=== PATIENT | female | born 1970 | race Caucasian/White ===

== ENCOUNTER 2020-07-24 15:49 | Inpatient (IN) | payer MEDICAID ==
[~2020-07-24] VITALS: Ht 160 cm; Wt 80.3 kg
[~2020-07-24 15:49] MED LIST: BRIM10DR2 EACHEYE; CHLO50TA MT; KETO5DRO7 EACHEYE; LINA5TAB PO; POLY30DR OP
[2020-07-24 18:07] LABS: BASOPHILS % 1.4 % (0.0-2.0); HEMATOCRIT. 32.3 % (36.0-48.0); HEMOGLOBIN. 11.1 g/dL (12.0-16.0); LYMPHOCYTES % 10.5 % (20.0-50.0); MEAN CORPUSCULAR VOLUME 81.2 fL (81.0-99.0); MEAN PLATELET VOLUME 7.9 fl (7.4-10.4); MONOCYTES % 9.1 % (2.0-8.0); PLATELET 286 x1000/uL (130-400); RED BLOOD CELL COUNT 3.98 mill/uL (4.2-5.4); RED CELL DISTRIBUTION WIDTH 17.3 % (11.6-14.6)
[2020-07-24 18:10] LABS: CHLORIDE 94 mEq/L (98-107)
[2020-07-24] MEDS ORDERED: FUROSEMIDE 40MG/4ML VIAL IVP ONE (18:45)
[2020-07-24] MEDS ORDERED: IPRATROPIUM/ALBUTEROL 0.5-3(2.5)MG/3ML NEB HHN PRN (20:00)
[2020-07-24] MEDS ORDERED: ONDANSETRON HCL 4MG/2ML INJ IV PRN (20:00)
[2020-07-24] MEDS ORDERED: DIPHENHYDRAMINE 50MG/ML VIAL IV PRN (20:00)
[2020-07-24 23:14] LABS: *AMPHETAMINES SCREEN URINE NEGATIVE (NEGATIVE); *BARBITURATES SCREEN URINE NEGATIVE (NEGATIVE); *BENZODIAZEPINES SCREEN URINE NEGATIVE (NEGATIVE); *COCAINE SCREEN URINE NEGATIVE (NEGATIVE); METHADONE URINE SCREEN NEGATIVE (NEGATIVE); OPIATES URINE SCREEN NEGATIVE (NEGATIVE)
[2020-07-24 23:15] LABS: CANNABINOID URINE SCREEN NEGATIVE (NEGATIVE); PHENCYCLIDINE URINE SCREEN NEGATIVE (NEGATIVE)
[2020-07-25 04:00] VITALS: BP 155/77
[2020-07-25 04:20] VITALS: BP 155/72
[2020-07-25] MEDS ORDERED: SPIR50TA5 MT (05:43)
[2020-07-25] MEDS ORDERED: AMLO5TAB88 PO (05:45)
[2020-07-25] MEDS ORDERED: HYDR-4134 PO (05:47)
[2020-07-25] MEDS ORDERED: LINA5TAB PO (05:51)
[2020-07-25] MEDS ORDERED: METF-414 MT (05:52)
[2020-07-25 08:00] VITALS: BP 146/69
[2020-07-25] MEDS: FUROSEMIDE 40MG/4ML VIAL IV SCH ×2 (09:29→17:32)
[2020-07-25 09:34] LABS: BASOPHILS % 1.3 % (0.0-2.0); EOSINOPHILS % 2.1 % (0.0-5.0); HEMATOCRIT. 31.3 % (36.0-48.0); HEMOGLOBIN. 10.6 g/dL (12.0-16.0); LYMPHOCYTES % 8.8 % (20.0-50.0); MEAN CORPUSCULAR HEMOGLOBIN 27.5 pg (28.0-32.0); MEAN CORPUSCULAR VOLUME 81.4 fL (81.0-99.0); MONOCYTES % 8.8 % (2.0-8.0); PLATELET 313 x1000/uL (130-400); RED BLOOD CELL COUNT 3.85 mill/uL (4.2-5.4); RED CELL DISTRIBUTION WIDTH 16.8 % (11.6-14.6)
[2020-07-25 09:41] LABS: CHLORIDE 94 mEq/L (98-107)
[2020-07-25 09:51] LABS: LDL CHOLESTEROL 144 mg/dL (5-100)
[2020-07-25 09:53] LABS: HDL CHOLESTEROL 83 mg/dL (40-59)
[2020-07-25] MEDS ORDERED: DEXTROSE 50% WATER 50ML SYRINGE IV PRN (11:45)
[2020-07-25 12:00] VITALS: BP 152/67
[2020-07-25] MEDS: BLOOD SUGAR DIAGNOSTIC STRIP TEST SCH ×3 (12:17→20:31)
[2020-07-25] MEDS: INSULIN LISPRO 100 UNITS/ML SUBCUT SCH ×3 (12:32→20:42)
[2020-07-25 12:51] LABS: PARTIAL THROMBOPLASTIN TIME 25.2 sec (23.4-31.0); PROTHROMBIN TIME 10.8 sec (9.6-11.0)
[2020-07-25] MEDS ORDERED: LIDOCAINE HCL 1% 20ML VIAL (Pyxis) INJ ONE (12:59)
[2020-07-25 13:19] LABS: HEPATITIS B SURFACE AB 3.8 mIU/mL
[2020-07-25 13:30] LABS: HEPATITIS B SURFACE ANTIGEN NEGATIVE
[2020-07-25 13:59] LABS: HEPATITIS A AB IGM NEGATIVE (NEGATIVE)
[2020-07-25 16:00] VITALS: BP 142/73
[2020-07-25] MEDS: AMLODIPINE 5MG TABLET PO SCH (17:33)
[2020-07-25 20:00] VITALS: BP 143/71
[2020-07-25] MEDS: ACETAMINOPHEN 325MG TABLET PO PRN (20:17)
[2020-07-25] MEDS: HYDRALAZINE HCL 25MG TABLET PO SCH (22:17)
[2020-07-26] VITALS (25 sets, daily range): BP systolic 109–179; BP diastolic 51–99
[2020-07-26] MEDS: ACETAMINOPHEN 325MG TABLET PO PRN (04:43)
[2020-07-26] MEDS: BLOOD SUGAR DIAGNOSTIC STRIP TEST SCH ×4 (06:16→20:52)
[2020-07-26] MEDS: INSULIN LISPRO 100 UNITS/ML SUBCUT SCH ×4 (06:16→20:55)
[2020-07-26] MEDS: HYDRALAZINE HCL 25MG TABLET PO SCH ×3 (06:39→22:06)
[2020-07-26] MEDS: FUROSEMIDE 40MG/4ML VIAL IV SCH ×2 (06:39→19:06)
[2020-07-26] MEDS: AMLODIPINE 5MG TABLET PO SCH (08:55)
[2020-07-26 11:43] LABS: BASOPHILS % 1.1 % (0.0-2.0); EOSINOPHILS % 4.3 % (0.0-5.0); HEMATOCRIT. 29.7 % (36.0-48.0); HEMOGLOBIN. 9.7 g/dL (12.0-16.0); LYMPHOCYTES % 13.1 % (20.0-50.0); MEAN CORPUSCULAR HEMOGLOBIN 27.3 pg (28.0-32.0); MEAN CORPUSCULAR VOLUME 83.1 fL (81.0-99.0); MEAN PLATELET VOLUME 8.2 fl (7.4-10.4); NEUTROPHILS % 68.5 % (40.0-76.0); PLATELET 266 x1000/uL (130-400); RED BLOOD CELL COUNT 3.57 mill/uL (4.2-5.4); RED CELL DISTRIBUTION WIDTH 17.2 % (11.6-14.6)
[2020-07-26 13:29] LABS: CLARITY URINE CLEAR (CLEAR); COLOR URINE YELLOW (YELLOW); KETONES URINE NEGATIVE (NEGATIVE); LEUKOCYTE ESTERASE URINE NEGATIVE (NEGATIVE); NITRITE URINE NEGATIVE (NEGATIVE); OCCULT BLOOD URINE NEGATIVE (NEGATIVE); PROTEIN URINE 3+ (NEGATIVE); SPECIFIC GRAVITY URINE 1.013 (1.005-1.030); UROBILINOGEN URINE 0.2 E.U./dL (0.2-1.0)
[2020-07-26] MEDS ORDERED: NOREPINEPHRINE 8 MG in DEXTROSE 5% WATER 250 ML IV NR (15:00)
[2020-07-26] MEDS ORDERED: EPINEPHRINE 10 MG in SODIUM CHLORIDE 0.9% 250 ML IV NR (15:00)
[2020-07-26] MEDS ORDERED: GENTAMICIN SULF 40MG/ML 2ML VIAL ONE (15:52)
[2020-07-26] MEDS ORDERED: SKIN ADHESIVE 0.7 GM EA TOP ONE (15:52)
[2020-07-26] MEDS ORDERED: BUPIVACAINE HCL/PF 0.25% (2.5MG/ML) 10ML ONE (15:52)
[2020-07-26] MEDS ORDERED: BUPIVACAINE HCL/PF 0.5% (5MG/ML) 10ML ONE (15:53)
[2020-07-26] MEDS ORDERED: VANCOMYCIN 1 G PREMIX 200 ML IV SCH (16:15)
[2020-07-26] MEDS ORDERED: VANCOMYCIN HCL 1 GM/VIAL ONE (16:19)
[2020-07-26] MEDS ORDERED: ACETAMINOPHEN 500MG TABLET ONE (16:25)
[2020-07-26 16:32] LABS: BG BASE EXCESS 1.9 mmol/L (-2.0-2.0); BG CARBOXYHEMOGLOBIN 0.3 % (0.5-1.5); BG DEOXYHEMOGLOBIN 7.6 % (0.0-5.0); BG FRACTION INSPIRED OXYGEN 21; BG HCO3 ACT 26.1 mmol/L (22.0-26.0); BG OXYGEN SATURATION 92.4 % (92.0-98.5); BG OXYHEMOGLOBIN 92.1 % (94.0-97.0); BG PCO2 39.2 mmHg (35.0-45.0); BG PH 7.441 (7.350-7.450); BG PO2 60.3 mmHg (75.0-100.0); BG SAMPLE SITE LEFT RADIAL; BG TOTAL HEMOGLOBIN 12.1 g/dL (12.0-18.0); BG VENT MODE ROOM AIR
[2020-07-26] MEDS ORDERED: METOCLOPRAMIDE HCL 10MG/2ML VIAL ONE (17:06)
[2020-07-26] MEDS ORDERED: MIDAZOLAM HCL 2 MG/2 ML VIAL ONE (17:06)
[2020-07-26] MEDS ORDERED: ONDANSETRON HCL 4MG/2ML INJ ONE (17:06)
[2020-07-26] MEDS ORDERED: ETOMIDATE 2MG/ML 10ML VIAL IV ONE (17:08)
[2020-07-26] MEDS ORDERED: ROCURONIUM BROMIDE 10MG/ML VIAL 5ML IV ONE (17:08)
[2020-07-26] MEDS ORDERED: SUCCINYLCHOLINE CHLORIDE 200MG/10ML IV ONE (17:08)
[2020-07-26] MEDS ORDERED: FENTANYL CITRATE/PF 50MCG/ML 2ML VIAL ONE (17:11)
[2020-07-26] MEDS ORDERED: CEFAZOLIN SODIUM 1000MG/VIAL ONE (17:11)
[2020-07-26] MEDS ORDERED: SODIUM CHLORIDE 0.9% 10ML VIAL ONE (17:12)
[2020-07-26] MEDS ORDERED: ALBUMIN HUMAN 25GM/100ML (25%) IV ONE (17:17)
[2020-07-26] MEDS ORDERED: LIDOCAINE HCL 2% 5ML SYRINGE IV ONE (17:24)
[2020-07-26] MEDS ORDERED: ALBUMIN HUMAN 25GM/100ML (25%) IV PRN (18:15)
[2020-07-26] MEDS ORDERED: OXYCODONE HCL/ACETAMINOPHEN 5/325MG TABLET PO PRN (18:15)
[2020-07-26] MEDS ORDERED: ACETAMINOPHEN 325MG TABLET PO PRN (18:15)
[2020-07-26] MEDS: OXYCODONE HCL/ACETAMINOPHEN 5/325MG TABLET PO PRN (20:30)
[2020-07-26] MEDS: ATORVASTATIN CALCIUM 40MG TABLET PO SCH ×2 (20:52→22:06)
[2020-07-26 21:38] LABS: EOSINOPHILS % 1.5 % (0.0-5.0); HEMATOCRIT. 26.8 % (36.0-48.0); HEMOGLOBIN. 9.2 g/dL (12.0-16.0); LYMPHOCYTES % 8.7 % (20.0-50.0); MEAN CORPUSCULAR HEMOGLOBIN 27.9 pg (28.0-32.0); MEAN CORPUSCULAR VOLUME 81.6 fL (81.0-99.0); MEAN PLATELET VOLUME 7.7 fl (7.4-10.4); MONOCYTES % 9.2 % (2.0-8.0); NEUTROPHILS % 79.6 % (40.0-76.0); PLATELET 250 x1000/uL (130-400); RED BLOOD CELL COUNT 3.28 mill/uL (4.2-5.4); RED CELL DISTRIBUTION WIDTH 16.9 % (11.6-14.6)
[2020-07-27] VITALS (73 sets, daily range): BP systolic 120–189; BP diastolic 51–93
[2020-07-27] MEDS: CLONIDINE 0.1MG TABLET PO PRN ×2 (00:35→10:23)
[2020-07-27] MEDS: OXYCODONE HCL/ACETAMINOPHEN 5/325MG TABLET PO PRN ×3 (00:42→07:24)
[2020-07-27] MEDS ORDERED: HYDRALAZINE 20MG/ML VIAL IV NR (02:30)
[2020-07-27 05:39] LABS: HEMATOCRIT. 32.1 % (36.0-48.0); HEMOGLOBIN. 10.5 g/dL (12.0-16.0); MEAN CORPUSCULAR VOLUME 82.6 fL (81.0-99.0); MEAN PLATELET VOLUME 7.9 fl (7.4-10.4); PLATELET 358 x1000/uL (130-400); RED BLOOD CELL COUNT 3.88 mill/uL (4.2-5.4); RED CELL DISTRIBUTION WIDTH 17.3 % (11.6-14.6)
[2020-07-27 05:47] LABS: PHOSPHORUS 6.4 mg/dL (2.5-4.9)
[2020-07-27] MEDS: FUROSEMIDE 40MG/4ML VIAL IV SCH ×2 (06:50→18:00)
[2020-07-27] MEDS: HYDRALAZINE HCL 25MG TABLET PO SCH ×3 (06:50→22:37)
[2020-07-27 07:05] LABS: PLATELET ESTIMATE NORMAL
[2020-07-27] MEDS: INSULIN LISPRO 100 UNITS/ML SUBCUT SCH ×4 (07:22→21:00)
[2020-07-27] MEDS: BLOOD SUGAR DIAGNOSTIC STRIP TEST SCH ×4 (07:22→21:37)
[2020-07-27] MEDS: FAMOTIDINE 20MG/2ML VIAL IV SCH (08:24)
[2020-07-27] MEDS: DOCUSATE SODIUM 100MG CAPSULE PO SCH ×2 (08:24→17:59)
[2020-07-27] MEDS: AMLODIPINE 5MG TABLET PO SCH ×2 (08:24→21:00)
[2020-07-27] MEDS: BACITRACIN 15GM TUBE TOP SCH ×2 (09:00→17:00)
[2020-07-27] MEDS: CALCIUM ACETATE 667MG CAPSULE PO SCH ×2 (14:09→17:59)
[2020-07-27] MEDS: ONDANSETRON HCL 4MG/2ML INJ IV PRN (14:19)
[2020-07-28] VITALS (49 sets, daily range): BP systolic 122–163; BP diastolic 56–109
[2020-07-28] MEDS: HYDRALAZINE HCL 25MG TABLET PO SCH ×3 (06:11→22:22)
[2020-07-28] MEDS: BLOOD SUGAR DIAGNOSTIC STRIP TEST SCH ×4 (07:36→21:00)
[2020-07-28] MEDS: INSULIN LISPRO 100 UNITS/ML SUBCUT SCH ×4 (07:37→21:00)
[2020-07-28] MEDS: FUROSEMIDE 40MG/4ML VIAL IV SCH ×2 (07:41→15:54)
[2020-07-28] MEDS: BACITRACIN 15GM TUBE TOP SCH ×2 (09:00→15:48)
[2020-07-28] MEDS: DOCUSATE SODIUM 100MG CAPSULE PO SCH ×2 (09:02→15:54)
[2020-07-28] MEDS: CALCIUM ACETATE 667MG CAPSULE PO SCH ×3 (09:03→18:22)
[2020-07-28] MEDS: FAMOTIDINE 20MG/2ML VIAL IV SCH (09:03)
[2020-07-28] MEDS: AMLODIPINE 5MG TABLET PO SCH ×2 (09:04→22:23)
[2020-07-28 09:48] LABS: HEMATOCRIT. 29.6 % (36.0-48.0); HEMOGLOBIN. 9.9 g/dL (12.0-16.0); MEAN CORPUSCULAR VOLUME 83.4 fL (81.0-99.0); MEAN PLATELET VOLUME 7.7 fl (7.4-10.4); PLATELET 244 x1000/uL (130-400); RED BLOOD CELL COUNT 3.55 mill/uL (4.2-5.4); RED CELL DISTRIBUTION WIDTH 17.5 % (11.6-14.6)
[2020-07-28] MEDS: ONDANSETRON HCL 4MG/2ML INJ IV PRN (14:23)
[2020-07-28] MEDS: PREDNISONE 20MG TABLET PO SCH (15:53)
[2020-07-28] MEDS: PANTOPRAZOLE 40MG DR TABLET PO SCH (15:53)
[2020-07-28 19:39] LABS: PLATELET ESTIMATE NORMAL
[2020-07-28] MEDS: ATORVASTATIN CALCIUM 40MG TABLET PO SCH (22:22)
[2020-07-29] VITALS (7 sets, daily range): BP systolic 131–161; BP diastolic 44–71
[2020-07-29] MEDS: BLOOD SUGAR DIAGNOSTIC STRIP TEST SCH ×4 (06:17→21:16)
[2020-07-29] MEDS: HYDRALAZINE HCL 25MG TABLET PO SCH ×3 (06:17→21:15)
[2020-07-29] MEDS: FUROSEMIDE 40MG/4ML VIAL IV SCH ×2 (06:17→18:17)
[2020-07-29] MEDS: PANTOPRAZOLE 40MG DR TABLET PO SCH (06:20)
[2020-07-29 06:33] LABS: HEMATOCRIT. 29.8 % (36.0-48.0); HEMOGLOBIN. 9.8 g/dL (12.0-16.0); MEAN CORPUSCULAR HEMOGLOBIN 27.3 pg (28.0-32.0); MEAN CORPUSCULAR VOLUME 83.1 fL (81.0-99.0); MEAN PLATELET VOLUME 7.4 fl (7.4-10.4); PLATELET 254 x1000/uL (130-400); RED BLOOD CELL COUNT 3.58 mill/uL (4.2-5.4); RED CELL DISTRIBUTION WIDTH 17.5 % (11.6-14.6)
[2020-07-29 06:44] LABS: PHOSPHORUS 5.1 mg/dL (2.5-4.9)
[2020-07-29] MEDS: INSULIN LISPRO 100 UNITS/ML SUBCUT SCH ×4 (07:50→21:24)
[2020-07-29] MEDS: BACITRACIN 15GM TUBE TOP SCH ×2 (09:00→17:00)
[2020-07-29] MEDS: CALCIUM ACETATE 667MG CAPSULE PO SCH ×3 (10:05→18:17)
[2020-07-29] MEDS: ONDANSETRON HCL 4MG/2ML INJ IV PRN (10:05)
[2020-07-29] MEDS: DOCUSATE SODIUM 100MG CAPSULE PO SCH ×2 (10:05→18:17)
[2020-07-29] MEDS: PREDNISONE 20MG TABLET PO SCH (10:05)
[2020-07-29 13:03] LABS: PLATELET ESTIMATE NORMAL
[2020-07-29] MEDS: AMLODIPINE 5MG TABLET PO SCH ×2 (15:50→21:15)
[2020-07-29] MEDS: ACETAMINOPHEN 325MG TABLET PO PRN (21:15)
[2020-07-29] MEDS: ATORVASTATIN CALCIUM 40MG TABLET PO SCH (21:15)
[2020-07-30] VITALS: BP 147/62
[2020-07-30 04:00] VITALS: BP 156/74
[2020-07-30] MEDS: FUROSEMIDE 40MG/4ML VIAL IV SCH ×2 (06:20→17:16)
[2020-07-30] MEDS: HYDRALAZINE HCL 25MG TABLET PO SCH ×3 (06:20→21:18)
[2020-07-30] MEDS: PANTOPRAZOLE 40MG DR TABLET PO SCH (06:20)
[2020-07-30] MEDS: BLOOD SUGAR DIAGNOSTIC STRIP TEST SCH ×4 (06:20→21:18)
[2020-07-30 06:21] LABS: HEMATOCRIT. 29.7 % (36.0-48.0); HEMOGLOBIN. 9.9 g/dL (12.0-16.0); MEAN CORPUSCULAR HEMOGLOBIN 27.6 pg (28.0-32.0); MEAN PLATELET VOLUME 7.7 fl (7.4-10.4); PLATELET 272 x1000/uL (130-400); RED BLOOD CELL COUNT 3.57 mill/uL (4.2-5.4); RED CELL DISTRIBUTION WIDTH 17.5 % (11.6-14.6)
[2020-07-30 08:00] VITALS: BP 136/59
[2020-07-30] MEDS: DOCUSATE SODIUM 100MG CAPSULE PO SCH ×2 (08:22→17:16)
[2020-07-30] MEDS: CALCIUM ACETATE 667MG CAPSULE PO SCH ×3 (08:22→17:16)
[2020-07-30] MEDS: AMLODIPINE 5MG TABLET PO SCH ×2 (08:23→21:18)
[2020-07-30] MEDS: PREDNISONE 20MG TABLET PO SCH (08:23)
[2020-07-30] MEDS: INSULIN LISPRO 100 UNITS/ML SUBCUT SCH ×5 (08:25→21:19)
[2020-07-30] MEDS: BACITRACIN 15GM TUBE TOP SCH ×2 (08:31→17:00)
[2020-07-30 12:00] VITALS: BP 137/67
[2020-07-30 13:05] LABS: PLATELET ESTIMATE NORMAL
[2020-07-30 16:00] VITALS: BP 144/68
[2020-07-30] MEDS ORDERED: DEXTROSE 50% WATER 50ML SYRINGE IV PRN (18:45)
[2020-07-30 20:00] VITALS: BP 155/72
[2020-07-30] MEDS: ATORVASTATIN CALCIUM 40MG TABLET PO SCH (21:18)
[2020-07-31] VITALS: BP 149/75
[2020-07-31 04:00] VITALS: BP 146/67
[2020-07-31 06:25] LABS: HEMATOCRIT. 29.2 % (36.0-48.0); HEMOGLOBIN. 9.7 g/dL (12.0-16.0); MEAN CORPUSCULAR HEMOGLOBIN 27.2 pg (28.0-32.0); MEAN CORPUSCULAR VOLUME 81.9 fL (81.0-99.0); MEAN PLATELET VOLUME 7.6 fl (7.4-10.4); PLATELET 280 x1000/uL (130-400); RED BLOOD CELL COUNT 3.57 mill/uL (4.2-5.4); RED CELL DISTRIBUTION WIDTH 16.9 % (11.6-14.6)
[2020-07-31] MEDS: HYDRALAZINE HCL 25MG TABLET PO SCH ×2 (06:35→12:58)
[2020-07-31] MEDS: PANTOPRAZOLE 40MG DR TABLET PO SCH (06:35)
[2020-07-31] MEDS: FUROSEMIDE 40MG/4ML VIAL IV SCH (06:35)
[2020-07-31] MEDS: BLOOD SUGAR DIAGNOSTIC STRIP TEST SCH ×4 (06:35→21:51)
[2020-07-31] MEDS: CALCIUM ACETATE 667MG CAPSULE PO SCH ×3 (07:50→18:36)
[2020-07-31 08:00] VITALS: BP 159/70
[2020-07-31] MEDS: PREDNISONE 20MG TABLET PO SCH (09:00)
[2020-07-31] MEDS: AMLODIPINE 5MG TABLET PO SCH ×2 (09:00→21:50)
[2020-07-31] MEDS: BACITRACIN 15GM TUBE TOP SCH (09:00)
[2020-07-31] MEDS: INSULIN LISPRO 100 UNITS/ML SUBCUT SCH ×4 (09:00→21:57)
[2020-07-31] MEDS: DOCUSATE SODIUM 100MG CAPSULE PO SCH ×2 (09:00→18:36)
[2020-07-31 12:00] VITALS: BP 152/66
[2020-07-31 14:48] LABS: PLATELET ESTIMATE NORMAL
[2020-07-31 16:00] VITALS: BP 146/69
[2020-07-31] MEDS: HYDRALAZINE HCL 50MG TABLET PO SCH (21:50)
[2020-07-31] MEDS: ATORVASTATIN CALCIUM 40MG TABLET PO SCH (21:51)
[2020-08-01] VITALS: BP 151/67
[2020-08-01 04:00] VITALS: BP 157/72
[2020-08-01 06:26] LABS: HEMATOCRIT. 30.5 % (36.0-48.0); HEMOGLOBIN. 10.3 g/dL (12.0-16.0); MEAN CORPUSCULAR HEMOGLOBIN 27.7 pg (28.0-32.0); MEAN CORPUSCULAR VOLUME 82.2 fL (81.0-99.0); MEAN PLATELET VOLUME 7.6 fl (7.4-10.4); PLATELET 273 x1000/uL (130-400); RED BLOOD CELL COUNT 3.71 mill/uL (4.2-5.4)
[2020-08-01] MEDS: PANTOPRAZOLE 40MG DR TABLET PO SCH (06:43)
[2020-08-01] MEDS: HYDRALAZINE HCL 50MG TABLET PO SCH ×3 (06:43→21:24)
[2020-08-01] MEDS: BLOOD SUGAR DIAGNOSTIC STRIP TEST SCH ×4 (06:43→21:24)
[2020-08-01 07:56] VITALS: BP 155/79
[2020-08-01] MEDS: DOCUSATE SODIUM 100MG CAPSULE PO SCH ×2 (09:13→16:53)
[2020-08-01] MEDS: ACETAMINOPHEN 325MG TABLET PO PRN ×2 (09:13→16:53)
[2020-08-01] MEDS: CALCIUM ACETATE 667MG CAPSULE PO SCH ×3 (09:13→16:53)
[2020-08-01] MEDS: FUROSEMIDE 40MG/4ML VIAL IV SCH (09:14)
[2020-08-01] MEDS: AMLODIPINE 5MG TABLET PO SCH ×2 (09:14→21:24)
[2020-08-01] MEDS: INSULIN LISPRO 100 UNITS/ML SUBCUT SCH ×4 (09:25→22:04)
[2020-08-01] MEDS: PREDNISONE 20MG TABLET PO SCH (09:26)
[2020-08-01] MEDS: BACITRACIN 15GM TUBE TOP SCH ×3 (10:42→16:59)
[2020-08-01 12:00] VITALS: BP 160/71
[2020-08-01] MEDS ORDERED: PANT40TA51 PO (14:43)
[2020-08-01] MEDS ORDERED: LIP40 PO (14:43)
[2020-08-01] MEDS ORDERED: P20 PO (14:43)
[2020-08-01] MEDS ORDERED: CALC667C PO (14:43)
[2020-08-01] MEDS ORDERED: HYDR-4135 PO (14:43)
[2020-08-01 16:00] VITALS: BP 159/73
[2020-08-01 19:09] LABS: PLATELET ESTIMATE NORMAL
[2020-08-01 20:00] VITALS: BP 164/72
[2020-08-01] MEDS: ATORVASTATIN CALCIUM 40MG TABLET PO SCH (21:24)
[2020-08-02] VITALS: BP 155/70
[2020-08-02 04:00] VITALS: BP 160/83
[2020-08-02] MEDS: PANTOPRAZOLE 40MG DR TABLET PO SCH (06:31)
[2020-08-02] MEDS: BLOOD SUGAR DIAGNOSTIC STRIP TEST SCH ×4 (06:31→21:41)
[2020-08-02] MEDS: HYDRALAZINE HCL 50MG TABLET PO SCH ×3 (06:31→21:40)
[2020-08-02] MEDS: ACETAMINOPHEN 325MG TABLET PO PRN (06:35)
[2020-08-02 08:01] VITALS: BP 141/63
[2020-08-02] MEDS: DOCUSATE SODIUM 100MG CAPSULE PO SCH ×2 (09:15→18:13)
[2020-08-02] MEDS: CALCIUM ACETATE 667MG CAPSULE PO SCH ×3 (09:15→18:13)
[2020-08-02] MEDS: PREDNISONE 20MG TABLET PO SCH (09:15)
[2020-08-02] MEDS: FUROSEMIDE 40MG/4ML VIAL IV SCH (09:15)
[2020-08-02] MEDS: AMLODIPINE 5MG TABLET PO SCH ×2 (09:16→21:41)
[2020-08-02] MEDS: INSULIN LISPRO 100 UNITS/ML SUBCUT SCH ×4 (09:17→21:45)
[2020-08-02] MEDS: BACITRACIN 15GM TUBE TOP SCH ×2 (09:21→18:13)
[2020-08-02 11:19] VITALS: BP 145/62
[2020-08-02 15:51] VITALS: BP 150/69
[2020-08-02] MEDS ORDERED: CEFTRIAXONE 1 G PREMIX 50 ML IV SCH (17:00)
[2020-08-02] MEDS ORDERED: LORAZEPAM 0.5MG TABLET PO PRN (17:30)
[2020-08-02] MEDS: CEFTRIAXONE 1,000 MG in DEXTROSE 5% WATER 50 ML IV SCH (18:30)
[2020-08-02 20:00] VITALS: BP 162/72
[2020-08-02] MEDS: ATORVASTATIN CALCIUM 40MG TABLET PO SCH (21:37)
[2020-08-03] VITALS: BP 153/69
[2020-08-03 04:00] VITALS: BP 145/58
[2020-08-03] MEDS: HYDRALAZINE HCL 50MG TABLET PO SCH ×3 (06:07→20:58)
[2020-08-03] MEDS: FAMOTIDINE 20MG TABLET PO SCH (06:07)
[2020-08-03] MEDS: BLOOD SUGAR DIAGNOSTIC STRIP TEST SCH ×4 (07:26→20:18)
[2020-08-03] MEDS: INSULIN LISPRO 100 UNITS/ML SUBCUT SCH ×4 (07:50→21:02)
[2020-08-03 08:55] VITALS: BP 142/64
[2020-08-03] MEDS: PREDNISONE 20MG TABLET PO SCH (09:35)
[2020-08-03] MEDS: AMLODIPINE 5MG TABLET PO SCH ×2 (09:35→20:57)
[2020-08-03] MEDS: CALCIUM ACETATE 667MG CAPSULE PO SCH ×3 (09:35→17:25)
[2020-08-03] MEDS: FUROSEMIDE 40MG/4ML VIAL IV SCH (09:35)
[2020-08-03] MEDS: DOCUSATE SODIUM 100MG CAPSULE PO SCH ×2 (09:35→17:25)
[2020-08-03] MEDS: BACITRACIN 15GM TUBE TOP SCH ×2 (09:36→17:25)
[2020-08-03 12:08] VITALS: BP 150/72
[2020-08-03 12:50] LABS: HEMATOCRIT. 27.8 % (36.0-48.0); HEMOGLOBIN. 9.5 g/dL (12.0-16.0); MEAN CORPUSCULAR HEMOGLOBIN 27.9 pg (28.0-32.0); MEAN CORPUSCULAR VOLUME 81.9 fL (81.0-99.0); MEAN PLATELET VOLUME 7.3 fl (7.4-10.4); PLATELET 283 x1000/uL (130-400); RED BLOOD CELL COUNT 3.39 mill/uL (4.2-5.4)
[2020-08-03] MEDS: ACETAMINOPHEN 325MG TABLET PO PRN (14:16)
[2020-08-03 16:27] VITALS: BP 144/70
[2020-08-03] MEDS: CEFTRIAXONE 1,000 MG in DEXTROSE 5% WATER 50 ML IV SCH (17:24)
[2020-08-03 18:23] LABS: PLATELET ESTIMATE NORMAL
[2020-08-03 20:00] VITALS: BP 156/69
[2020-08-03] MEDS: ATORVASTATIN CALCIUM 40MG TABLET PO SCH (20:57)
[2020-08-04] VITALS: BP 160/88
[2020-08-04] MEDS: CLONIDINE 0.1MG TABLET PO PRN (03:06)
[2020-08-04 04:00] VITALS: BP 149/76
[2020-08-04] MEDS: BLOOD SUGAR DIAGNOSTIC STRIP TEST SCH ×4 (06:11→20:18)
[2020-08-04] MEDS: FAMOTIDINE 20MG TABLET PO SCH (06:29)
[2020-08-04] MEDS: HYDRALAZINE HCL 50MG TABLET PO SCH ×3 (06:29→21:11)
[2020-08-04 08:00] VITALS: BP 142/80
[2020-08-04] MEDS: PREDNISONE 20MG TABLET PO SCH (09:22)
[2020-08-04] MEDS: CALCIUM ACETATE 667MG CAPSULE PO SCH ×3 (09:22→17:16)
[2020-08-04] MEDS: DOCUSATE SODIUM 100MG CAPSULE PO SCH ×2 (09:22→17:17)
[2020-08-04] MEDS: FUROSEMIDE 40MG/4ML VIAL IV SCH (09:22)
[2020-08-04] MEDS: AMLODIPINE 5MG TABLET PO SCH ×2 (09:22→21:11)
[2020-08-04] MEDS: INSULIN LISPRO 100 UNITS/ML SUBCUT SCH ×4 (09:24→21:14)
[2020-08-04 12:00] VITALS: BP 146/84
[2020-08-04] MEDS: BACITRACIN 15GM TUBE TOP SCH ×2 (13:10→17:17)
[2020-08-04] MEDS: ACETAMINOPHEN 325MG TABLET PO PRN ×3 (15:36→21:12)
[2020-08-04 16:00] VITALS: BP 140/82
[2020-08-04 16:25] LABS: CLARITY URINE CLEAR (CLEAR); COLOR URINE YELLOW (YELLOW); KETONES URINE NEGATIVE (NEGATIVE); LEUKOCYTE ESTERASE URINE NEGATIVE (NEGATIVE); NITRITE URINE NEGATIVE (NEGATIVE); OCCULT BLOOD URINE NEGATIVE (NEGATIVE); PROTEIN URINE 2+ (NEGATIVE); SPECIFIC GRAVITY URINE 1.013 (1.005-1.030); UROBILINOGEN URINE 0.2 E.U./dL (0.2-1.0)
[2020-08-04] MEDS: CEFTRIAXONE 1,000 MG in DEXTROSE 5% WATER 50 ML IV SCH (17:16)
[2020-08-04 20:00] VITALS: BP 161/87
[2020-08-04] MEDS: ATORVASTATIN CALCIUM 40MG TABLET PO SCH (21:11)
[2020-08-05] VITALS: BP 140/73
[2020-08-05 04:00] VITALS: BP 148/65
[2020-08-05] MEDS: BLOOD SUGAR DIAGNOSTIC STRIP TEST SCH ×2 (06:39→11:55)
[2020-08-05] MEDS: INSULIN LISPRO 100 UNITS/ML SUBCUT SCH ×2 (07:50→12:03)
[2020-08-05 08:00] VITALS: BP 169/74
[2020-08-05] MEDS: BACITRACIN 15GM TUBE TOP SCH (09:00)
[2020-08-05] MEDS: FUROSEMIDE 40MG/4ML VIAL IV SCH (09:01)
[2020-08-05] MEDS: HYDRALAZINE HCL 50MG TABLET PO SCH ×2 (09:02→13:57)
[2020-08-05] MEDS: PREDNISONE 20MG TABLET PO SCH (09:02)
[2020-08-05] MEDS: CALCIUM ACETATE 667MG CAPSULE PO SCH ×2 (09:02→12:07)
[2020-08-05] MEDS: DOCUSATE SODIUM 100MG CAPSULE PO SCH (09:02)
[2020-08-05] MEDS: AMLODIPINE 5MG TABLET PO SCH (09:02)
[2020-08-05] MEDS: FAMOTIDINE 20MG TABLET PO SCH (09:02)
[2020-08-05 12:00] VITALS: BP 160/70
[2020-08-05 14:06] VITALS: BP 152/72
[2020-08-08] VITALS: BP 124/73
[2020-08-08 04:00] VITALS: BP 134/55
== END 2020-08-05 14:50 | disposition home or self-care (01) | DRG 207 ==
LOC: ER 16:33 → MICUSO 22:28 → 5WST 07-25 02:10 → CVICU 07-26 18:15 → 6WST 07-29 01:15 → UNDODISIN 08-04 17:45
PROVIDERS: ADMIT Internal Medicine; ATTEND Internal Medicine
PROC: 0JH63XZ Insertion of Tunneled Vascular Access Device into Chest Subcutaneous Tissue and Fascia, Percutaneous Approach (ICD-10-PCS; principal; 2020-07-25)
PROC: B5181ZA Fluoroscopy of Superior Vena Cava using Low Osmolar Contrast, Guidance (ICD-10-PCS; 2020-07-25)
PROC: B548ZZA Ultrasonography of Superior Vena Cava, Guidance (ICD-10-PCS; 2020-07-25)
PROC: 02HV33Z Insertion of Infusion Device into Superior Vena Cava, Percutaneous Approach (ICD-10-PCS; 2020-07-25)
PROC: 5A1D70Z Performance of Urinary Filtration, Intermittent, Less than 6 Hours Per Day (ICD-10-PCS; 2020-07-25)
PROC: 0W9D3ZZ Drainage of Pericardial Cavity, Percutaneous Approach (ICD-10-PCS; 2020-07-26)
PROC: 5A1D70Z Performance of Urinary Filtration, Intermittent, Less than 6 Hours Per Day (ICD-10-PCS; 2020-07-27)
PROC: 5A1D70Z Performance of Urinary Filtration, Intermittent, Less than 6 Hours Per Day (ICD-10-PCS; 2020-07-29)
DX: I31.3 Pericardial effusion (noninflammatory) (principal); J96.00 Acute respiratory failure, unspecified whether with hypoxia or hypercapnia; N17.0 Acute kidney failure with tubular necrosis; I13.2 Hypertensive heart and chronic kidney disease with heart failure and with stage 5 chronic kidney disease, or end stage renal disease; J91.8 Pleural effusion in other conditions classified elsewhere; I27.20 Pulmonary hypertension, unspecified; E83.39 Other disorders of phosphorus metabolism; N18.6 End stage renal disease; E11.22 Type 2 diabetes mellitus with diabetic chronic kidney disease; E83.41 Hypermagnesemia; E87.1 Hypo-osmolality and hyponatremia; E78.5 Hyperlipidemia, unspecified; K86.9 Disease of pancreas, unspecified; D64.9 Anemia, unspecified; E87.6 Hypokalemia; Z20.822 Contact with and (suspected) exposure to COVID-19; F17.210 Nicotine dependence, cigarettes, uncomplicated; R97.1 Elevated cancer antigen 125 [CA 125]; Z80.9 Family history of malignant neoplasm, unspecified; Z99.2 Dependence on renal dialysis; R60.1 Generalized edema; R50.9 Fever, unspecified
CPT/HCPCS: 36415; 36556; 36600; 71045; 74181; 76937; 77001; 80048; 80053; 80061; 80305; 81003; 82375; 82378; 82533; 82575; 82805; 82962; 83036; 83735; 83880; 83930; 83935; 84100; 84145; 84443; 84484; 85025; 86301; 86304; 86705; 86706; 86709; 86803; 86850; 86900; 86920; 87075; 87116; 87340; 87426; 88108; 88305; 88312; 93005; 93306; 93970; 97162; 97166; 99285; C1752; C1887; J0330; J0360; J0690; J0696; J1200; J1580; J1642; J1815; J1940; J2250; J2405; J2765; J3010; J3370; J3490; J7040; J7050; J7060; J7512; P9047; U0003; A4315

== ENCOUNTER 2020-08-11 16:32 | Inpatient (IN) | payer MEDICAID ==
[~2020-08-11] VITALS: Ht 152.4 cm; Wt 66.7 kg
[~2020-08-11 16:32] MED LIST changes: +AMLO5TAB88 PO; +CALC667C PO; +HYDR-4135 PO; +LIP40 PO; +METF-414 MT; +P20 PO; +PANT40TA51 PO
[2020-08-11] MEDS ORDERED: MORPHINE SULFATE 4 MG/ML CPJ (NOT FOR IM USE) IV ONE (17:15)
[2020-08-11 17:22] LABS: CHLORIDE 97 mEq/L (98-107)
[2020-08-11 17:26] LABS: PROTHROMBIN TIME 11.2 sec (9.6-11.0)
[2020-08-11 17:30] LABS: HEMATOCRIT. 29.1 % (36.0-48.0); HEMOGLOBIN. 9.7 g/dL (12.0-16.0); MEAN CORPUSCULAR HEMOGLOBIN 27.3 pg (28.0-32.0); MEAN CORPUSCULAR VOLUME 82.2 fL (81.0-99.0); MEAN PLATELET VOLUME 8.2 fl (7.4-10.4); PLATELET 307 x1000/uL (130-400); RED BLOOD CELL COUNT 3.54 mill/uL (4.2-5.4); RED CELL DISTRIBUTION WIDTH 17.7 % (11.6-14.6)
[2020-08-11 18:56] LABS: PLATELET ESTIMATE NORMAL
[2020-08-11 22:30] VITALS: BP 143/70
[2020-08-11] MEDS ORDERED: DEXTROSE 50% WATER 50ML SYRINGE IV PRN (23:00)
[2020-08-12] VITALS: BP 132/56
[2020-08-12 04:00] VITALS: BP 131/55
[2020-08-12] MEDS: FUROSEMIDE 40MG/4ML VIAL IVP SCH ×2 (06:20→16:50)
[2020-08-12] MEDS: PANTOPRAZOLE 40MG DR TABLET PO SCH (06:21)
[2020-08-12] MEDS: BLOOD SUGAR DIAGNOSTIC STRIP TEST SCH ×4 (06:21→20:56)
[2020-08-12] MEDS: HYDRALAZINE HCL 50MG TABLET PO SCH ×3 (06:21→21:41)
[2020-08-12 06:59] LABS: BASOPHILS % 1.7 % (0.0-2.0); EOSINOPHILS % 2.6 % (0.0-5.0); HEMATOCRIT. 28.4 % (36.0-48.0); HEMOGLOBIN. 9.5 g/dL (12.0-16.0); LYMPHOCYTES % 9.7 % (20.0-50.0); MEAN CORPUSCULAR HEMOGLOBIN 27.9 pg (28.0-32.0); MEAN CORPUSCULAR VOLUME 83.5 fL (81.0-99.0); MEAN PLATELET VOLUME 8.2 fl (7.4-10.4); MONOCYTES % 8.9 % (2.0-8.0); NEUTROPHILS % 77.1 % (40.0-76.0); PLATELET 274 x1000/uL (130-400); RED CELL DISTRIBUTION WIDTH 17.8 % (11.6-14.6)
[2020-08-12 08:00] VITALS: BP 138/64
[2020-08-12] MEDS: AMLODIPINE 10MG TABLET PO SCH (08:56)
[2020-08-12] MEDS: CALCIUM ACETATE 667MG CAPSULE PO SCH ×3 (08:56→16:50)
[2020-08-12] MEDS: TIMOLOL MALEATE 0.5% OPHTH DROPS 5ML EACHEYE SCH ×2 (08:57→21:12)
[2020-08-12] MEDS: BRIMONIDINE 0.2% OPHTH DROPS 5ML EACHEYE SCH ×2 (08:57→21:12)
[2020-08-12] MEDS ORDERED: MEDICATION NOT ON FORMULARY EA (Ketotifen Fumarate 1 DROP) EACHEYE SCH (09:00)
[2020-08-12] MEDS ORDERED: MEDICATION NOT ON FORMULARY EA (Brimonidine Tartrate/Timolol (Combigan Eye Drops) 1 DROP EACHEYE SCH (09:00)
[2020-08-12] MEDS: INSULIN LISPRO 100 UNITS/ML SUBCUT SCH ×4 (09:39→21:14)
[2020-08-12] MEDS ORDERED: LIDOCAINE HCL 1% 20ML VIAL (Pyxis) INJ ONE (11:09)
[2020-08-12 16:00] VITALS: BP 115/58
[2020-08-12] MEDS ORDERED: INSULIN GLARGINE UD 100 UNITS/ML SYR SUBCUT ONE (19:30)
[2020-08-12 20:00] VITALS: BP 135/65
[2020-08-12] MEDS: ATORVASTATIN CALCIUM 40MG TABLET PO SCH (21:14)
[2020-08-12] MEDS: INSULIN GLARGINE UD 100 UNITS/ML SYR SUBCUT SCH (21:37)
[2020-08-13] VITALS: BP 107/42
[2020-08-13] MEDS: ACETAMINOPHEN 325MG TABLET PO PRN ×2 (00:50→10:04)
[2020-08-13 04:00] VITALS: BP 114/43
[2020-08-13] MEDS: HYDRALAZINE HCL 50MG TABLET PO SCH ×3 (05:41→21:55)
[2020-08-13] MEDS: FUROSEMIDE 40MG/4ML VIAL IVP SCH (05:41)
[2020-08-13 06:49] LABS: HEMATOCRIT. 26.8 % (36.0-48.0); MEAN CORPUSCULAR VOLUME 83.1 fL (81.0-99.0); MEAN PLATELET VOLUME 8.1 fl (7.4-10.4); PLATELET 225 x1000/uL (130-400); RED BLOOD CELL COUNT 3.22 mill/uL (4.2-5.4); RED CELL DISTRIBUTION WIDTH 17.7 % (11.6-14.6)
[2020-08-13] MEDS: BLOOD SUGAR DIAGNOSTIC STRIP TEST SCH ×4 (07:00→20:45)
[2020-08-13] MEDS: PANTOPRAZOLE 40MG DR TABLET PO SCH (07:01)
[2020-08-13 07:03] LABS: HEPATITIS B SURFACE ANTIGEN NEGATIVE
[2020-08-13] MEDS: INSULIN LISPRO 100 UNITS/ML SUBCUT SCH ×4 (07:47→20:45)
[2020-08-13 08:00] VITALS: BP 126/86
[2020-08-13] MEDS ORDERED: NAPHAZOLINE HCL/PHENIR MAL OPHTH SOLN 15ML EACHEYE PRN (08:15)
[2020-08-13] MEDS: CALCIUM ACETATE 667MG CAPSULE PO SCH ×3 (08:50→17:49)
[2020-08-13] MEDS: AMLODIPINE 10MG TABLET PO SCH (08:53)
[2020-08-13] MEDS: BRIMONIDINE 0.2% OPHTH DROPS 5ML EACHEYE SCH ×2 (10:21→21:47)
[2020-08-13] MEDS: TIMOLOL MALEATE 0.5% OPHTH DROPS 5ML EACHEYE SCH ×2 (10:22→21:47)
[2020-08-13] MEDS: INSULIN GLARGINE UD 100 UNITS/ML SYR SUBCUT SCH ×2 (10:23→21:55)
[2020-08-13 12:00] VITALS: BP 133/59
[2020-08-13 13:10] LABS: TOTAL IRON BINDING CAPACITY 209 ug/dL (250-450)
[2020-08-13 13:42] LABS: PLATELET ESTIMATE NORMAL
[2020-08-13 16:00] VITALS: BP 123/54
[2020-08-13 20:00] VITALS: BP 133/53
[2020-08-13] MEDS: ATORVASTATIN CALCIUM 40MG TABLET PO SCH (21:48)
[2020-08-14] VITALS: BP 138/55
[2020-08-14 04:00] VITALS: BP 140/57
[2020-08-14 05:58] LABS: BASOPHILS % 1.2 % (0.0-2.0); EOSINOPHILS % 2.8 % (0.0-5.0); LYMPHOCYTES % 8.3 % (20.0-50.0); MEAN CORPUSCULAR HEMOGLOBIN 27.8 pg (28.0-32.0); MEAN CORPUSCULAR VOLUME 83.4 fL (81.0-99.0); MEAN PLATELET VOLUME 8.2 fl (7.4-10.4); MONOCYTES % 9.5 % (2.0-8.0); NEUTROPHILS % 78.2 % (40.0-76.0); PLATELET 245 x1000/uL (130-400); RED BLOOD CELL COUNT 3.24 mill/uL (4.2-5.4); RED CELL DISTRIBUTION WIDTH 17.9 % (11.6-14.6)
[2020-08-14] MEDS: HYDRALAZINE HCL 50MG TABLET PO SCH ×3 (06:00→21:49)
[2020-08-14] MEDS: BLOOD SUGAR DIAGNOSTIC STRIP TEST SCH ×4 (06:32→21:49)
[2020-08-14] MEDS: INSULIN LISPRO 100 UNITS/ML SUBCUT SCH ×4 (07:19→21:00)
[2020-08-14 08:00] VITALS: BP 138/58
[2020-08-14] MEDS: CALCIUM ACETATE 667MG CAPSULE PO SCH ×3 (08:28→18:11)
[2020-08-14] MEDS: FAMOTIDINE 20MG TABLET PO SCH (08:28)
[2020-08-14] MEDS: TIMOLOL MALEATE 0.5% OPHTH DROPS 5ML EACHEYE SCH ×2 (08:28→21:49)
[2020-08-14] MEDS: BRIMONIDINE 0.2% OPHTH DROPS 5ML EACHEYE SCH ×2 (08:28→21:49)
[2020-08-14] MEDS: AMLODIPINE 10MG TABLET PO SCH (08:29)
[2020-08-14] MEDS: INSULIN GLARGINE UD 100 UNITS/ML SYR SUBCUT SCH (10:26)
[2020-08-14 12:30] VITALS: BP 150/68
[2020-08-14 16:06] VITALS: BP 138/62
[2020-08-14 20:00] VITALS: BP 131/54
[2020-08-14] MEDS: EPOETIN ALFA-EPBX 10,000 UNIT/ML VIAL SUBCUT SCH (21:48)
[2020-08-14] MEDS: ATORVASTATIN CALCIUM 40MG TABLET PO SCH (21:49)
[2020-08-15] VITALS: BP 126/52
[2020-08-15 04:00] VITALS: BP 133/58
[2020-08-15 06:25] LABS: BASOPHILS % 1.8 % (0.0-2.0); HEMATOCRIT. 26.9 % (36.0-48.0); LYMPHOCYTES % 10.6 % (20.0-50.0); MEAN CORPUSCULAR HEMOGLOBIN 28.1 pg (28.0-32.0); MEAN CORPUSCULAR VOLUME 83.9 fL (81.0-99.0); MONOCYTES % 11.2 % (2.0-8.0); NEUTROPHILS % 72.4 % (40.0-76.0); PLATELET 211 x1000/uL (130-400); RED BLOOD CELL COUNT 3.21 mill/uL (4.2-5.4); RED CELL DISTRIBUTION WIDTH 18.4 % (11.6-14.6)
[2020-08-15] MEDS: INSULIN LISPRO 100 UNITS/ML SUBCUT SCH ×4 (06:30→21:00)
[2020-08-15] MEDS: CALCIUM ACETATE 667MG CAPSULE PO SCH ×3 (06:30→18:01)
[2020-08-15] MEDS: HYDRALAZINE HCL 50MG TABLET PO SCH ×3 (06:30→22:21)
[2020-08-15] MEDS: BLOOD SUGAR DIAGNOSTIC STRIP TEST SCH ×4 (06:30→21:00)
[2020-08-15 07:23] LABS: HEPATITIS A AB IGM NEGATIVE (NEGATIVE)
[2020-08-15 08:19] VITALS: BP 105/51
[2020-08-15] MEDS: TIMOLOL MALEATE 0.5% OPHTH DROPS 5ML EACHEYE SCH ×2 (09:00→22:21)
[2020-08-15] MEDS: FAMOTIDINE 20MG TABLET PO SCH (09:00)
[2020-08-15] MEDS: BRIMONIDINE 0.2% OPHTH DROPS 5ML EACHEYE SCH ×2 (09:00→22:21)
[2020-08-15] MEDS: AMLODIPINE 10MG TABLET PO SCH (09:00)
[2020-08-15 12:23] VITALS: BP 157/68
[2020-08-15 20:39] VITALS: BP 141/62
[2020-08-15] MEDS: ATORVASTATIN CALCIUM 40MG TABLET PO SCH (22:21)
[2020-08-15] MEDS: ACETAMINOPHEN 325MG TABLET PO PRN (22:26)
[2020-08-16 00:48] VITALS: BP 132/54
[2020-08-16 04:00] VITALS: BP 113/51
[2020-08-16] MEDS: HYDRALAZINE HCL 50MG TABLET PO SCH ×3 (05:49→22:24)
[2020-08-16] MEDS: BLOOD SUGAR DIAGNOSTIC STRIP TEST SCH ×4 (05:50→21:00)
[2020-08-16] MEDS: CALCIUM ACETATE 667MG CAPSULE PO SCH ×3 (05:50→17:33)
[2020-08-16] MEDS: INSULIN LISPRO 100 UNITS/ML SUBCUT SCH ×4 (05:55→22:44)
[2020-08-16 07:10] LABS: HEPATITIS B SURFACE ANTIGEN NEGATIVE
[2020-08-16 07:40] LABS: HEPATITIS A AB IGM NEGATIVE (NEGATIVE)
[2020-08-16 08:00] VITALS: BP 134/56
[2020-08-16] MEDS: FAMOTIDINE 20MG TABLET PO SCH (08:30)
[2020-08-16] MEDS: AMLODIPINE 10MG TABLET PO SCH (08:31)
[2020-08-16] MEDS: TIMOLOL MALEATE 0.5% OPHTH DROPS 5ML EACHEYE SCH ×2 (08:32→22:16)
[2020-08-16] MEDS: BRIMONIDINE 0.2% OPHTH DROPS 5ML EACHEYE SCH ×2 (08:32→22:16)
[2020-08-16 12:00] VITALS: BP 141/64
[2020-08-16 16:00] VITALS: BP 131/66
[2020-08-16 20:00] VITALS: BP 145/65
[2020-08-16] MEDS: EPOETIN ALFA-EPBX 10,000 UNIT/ML VIAL SUBCUT SCH (22:18)
[2020-08-16] MEDS: ATORVASTATIN CALCIUM 40MG TABLET PO SCH (22:24)
[2020-08-17] VITALS (7 sets, daily range): BP systolic 114–154; BP diastolic 54–72
[2020-08-17] MEDS: HYDRALAZINE HCL 50MG TABLET PO SCH ×3 (06:11→21:00)
[2020-08-17 06:15] LABS: HEMATOCRIT. 27.5 % (36.0-48.0); MEAN CORPUSCULAR HEMOGLOBIN 27.6 pg (28.0-32.0); MEAN CORPUSCULAR VOLUME 84.6 fL (81.0-99.0); MEAN PLATELET VOLUME 7.6 fl (7.4-10.4); PLATELET 175 x1000/uL (130-400); RED BLOOD CELL COUNT 3.25 mill/uL (4.2-5.4); RED CELL DISTRIBUTION WIDTH 18.1 % (11.6-14.6)
[2020-08-17] MEDS: INSULIN LISPRO 100 UNITS/ML SUBCUT SCH ×4 (07:32→20:53)
[2020-08-17] MEDS: BLOOD SUGAR DIAGNOSTIC STRIP TEST SCH ×4 (07:32→20:53)
[2020-08-17] MEDS: CALCIUM ACETATE 667MG CAPSULE PO SCH ×3 (08:29→18:31)
[2020-08-17] MEDS: BRIMONIDINE 0.2% OPHTH DROPS 5ML EACHEYE SCH ×2 (08:31→20:51)
[2020-08-17] MEDS: TIMOLOL MALEATE 0.5% OPHTH DROPS 5ML EACHEYE SCH ×2 (08:31→20:52)
[2020-08-17] MEDS: AMLODIPINE 10MG TABLET PO SCH (08:32)
[2020-08-17] MEDS: FAMOTIDINE 20MG TABLET PO SCH (08:32)
[2020-08-17 14:47] LABS: PLATELET ESTIMATE NORMAL
[2020-08-17] MEDS: ACETAMINOPHEN 325MG TABLET PO PRN (20:52)
[2020-08-17] MEDS: ATORVASTATIN CALCIUM 40MG TABLET PO SCH (20:52)
[2020-08-18] VITALS (20 sets, daily range): BP systolic 138–167; BP diastolic 51–83
[2020-08-18] MEDS: HYDRALAZINE HCL 50MG TABLET PO SCH ×2 (05:45→14:57)
[2020-08-18] MEDS: BLOOD SUGAR DIAGNOSTIC STRIP TEST SCH ×2 (06:21→12:19)
[2020-08-18] MEDS: INSULIN LISPRO 100 UNITS/ML SUBCUT SCH ×2 (06:43→12:19)
[2020-08-18] MEDS: CALCIUM ACETATE 667MG CAPSULE PO SCH ×2 (07:44→14:56)
[2020-08-18] MEDS: TIMOLOL MALEATE 0.5% OPHTH DROPS 5ML EACHEYE SCH (10:05)
[2020-08-18] MEDS: BRIMONIDINE 0.2% OPHTH DROPS 5ML EACHEYE SCH (10:05)
[2020-08-18] MEDS: AMLODIPINE 10MG TABLET PO SCH (10:05)
[2020-08-18] MEDS: FAMOTIDINE 20MG TABLET PO SCH (10:05)
[2020-08-18 11:57] LABS: PROTHROMBIN TIME 10.9 sec (9.6-11.0)
[2020-08-18] MEDS ORDERED: CEFAZOLIN 1000MG PREMIX 50 ML IV ONE ×2 (12:15→12:33)
[2020-08-18] MEDS ORDERED: LIDOCAINE HCL 1% 20ML VIAL (Pyxis) INJ ONE (12:18)
[2020-08-18] MEDS ORDERED: FENTANYL CITRATE/PF 50MCG/ML 2ML VIAL ONE (12:33)
[2020-08-18] MEDS ORDERED: FENTANYL CITRATE/PF 50MCG/ML 2ML VIAL IV ONE (13:15)
[2020-08-18] MEDS: ACETAMINOPHEN 325MG TABLET PO PRN (14:56)
== END 2020-08-18 17:17 | disposition home or self-care (01) | DRG 469 ==
LOC: ER 16:32 → 6WST 20:29 → ENRESERV 21:05
PROVIDERS: ADMIT Internal Medicine; ATTEND Internal Medicine
PROC: 02HV33Z Insertion of Infusion Device into Superior Vena Cava, Percutaneous Approach (ICD-10-PCS; principal; 2020-08-12)
PROC: B548ZZA Ultrasonography of Superior Vena Cava, Guidance (ICD-10-PCS; 2020-08-12)
PROC: B5181ZA Fluoroscopy of Superior Vena Cava using Low Osmolar Contrast, Guidance (ICD-10-PCS; 2020-08-12)
PROC: 5A1D70Z Performance of Urinary Filtration, Intermittent, Less than 6 Hours Per Day (ICD-10-PCS; 2020-08-14)
PROC: 5A1D70Z Performance of Urinary Filtration, Intermittent, Less than 6 Hours Per Day (ICD-10-PCS; 2020-08-15)
PROC: 5A1D70Z Performance of Urinary Filtration, Intermittent, Less than 6 Hours Per Day (ICD-10-PCS; 2020-08-17)
PROC: 02PYX3Z Removal of Infusion Device from Great Vessel, External Approach (ICD-10-PCS; 2020-08-18)
PROC: 02HV33Z Insertion of Infusion Device into Superior Vena Cava, Percutaneous Approach (ICD-10-PCS; 2020-08-18)
PROC: 0JH63XZ Insertion of Tunneled Vascular Access Device into Chest Subcutaneous Tissue and Fascia, Percutaneous Approach (ICD-10-PCS; 2020-08-18)
PROC: B5181ZA Fluoroscopy of Superior Vena Cava using Low Osmolar Contrast, Guidance (ICD-10-PCS; 2020-08-18)
DX: N17.9 Acute kidney failure, unspecified (principal); E11.22 Type 2 diabetes mellitus with diabetic chronic kidney disease; E11.649 Type 2 diabetes mellitus with hypoglycemia without coma; E83.39 Other disorders of phosphorus metabolism; I27.20 Pulmonary hypertension, unspecified; R18.8 Other ascites; I12.0 Hypertensive chronic kidney disease with stage 5 chronic kidney disease or end stage renal disease; N18.6 End stage renal disease; E87.1 Hypo-osmolality and hyponatremia; E87.8 Other disorders of electrolyte and fluid balance, not elsewhere classified; E66.9 Obesity, unspecified; D63.8 Anemia in other chronic diseases classified elsewhere; E78.5 Hyperlipidemia, unspecified; I31.3 Pericardial effusion (noninflammatory); R97.1 Elevated cancer antigen 125 [CA 125]; K82.8 Other specified diseases of gallbladder; N20.0 Calculus of kidney; Z20.822 Contact with and (suspected) exposure to COVID-19; Z99.2 Dependence on renal dialysis; Z80.9 Family history of malignant neoplasm, unspecified; Z82.49 Family history of ischemic heart disease and other diseases of the circulatory system; Z83.3 Family history of diabetes mellitus; Z90.710 Acquired absence of both cervix and uterus; Z68.28 Body mass index [BMI] 28.0-28.9, adult; Z79.899 Other long term (current) drug therapy; Z71.3 Dietary counseling and surveillance
CPT/HCPCS: 36415; 36558; 36589; 71045; 74176; 76705; 77001; 80048; 80053; 80061; 82962; 83036; 83540; 83550; 83880; 84100; 84484; 85025; 86703; 86705; 86706; 86709; 86803; 87340; 87426; 93005; 93306; 99152; 99153; 99285; C1750; C1752; C1769; C1887; C1893; J0690; J0885; J1642; J1815; J1940; J2270; J3010; J3490; U0003; A4315; G0500

== ENCOUNTER → 2021-08-21 | Day surgery (SDC) | payer MEDICAID ==
[~2021-08-21] VITALS: Ht 152.4 cm; Wt 61.7 kg
[~2021-08-21] MED LIST changes: +ATEN50TA MT; +BACITRACIN 15GM TUBE TOP ONE; +BUPIVACAINE HCL/PF 0.5% (5MG/ML) 30ML ONE; +CEFAZOLIN SODIUM 1000MG/VIAL ONE; +FENTANYL CITRATE/PF 50MCG/ML 2ML VIAL IV PRN; +FENTANYL CITRATE/PF 50MCG/ML 5ML VIAL ONE; +HEPARIN 1000 UNITS/ML 10ML ONE; +HEPARIN SODIUM 1,000 UNIT/1ML VIAL IV NR; +HEPARIN SODIUM 1,000 UNIT/1ML VIAL IV ONE; +HYDROCODONE/ACETAMINOPHEN 5/325MG TABLET PO PRN; +INSU300I SQ; +LIDOCAINE HCL 1% 20ML VIAL (Pyxis) INJ ONE; +MIDAZOLAM HCL 2 MG/2 ML VIAL ONE; +ONDANSETRON HCL 4MG/2ML INJ IV PRN; +ONDANSETRON HCL 4MG/2ML INJ ONE; +POLYMYXIN B SULFATE 500000 UNITS/VIAL ONE; +PROPOFOL 200MG/20ML VIAL IV ONE; +SEMA7TAB PO; +SODIUM CHLORIDE 0.9% INJ 3ML FLUSH IVF SCH; +THROMBIN (BOVINE) 5000 UNITS/VIAL TOP ONE
[2021-08-21 16:28] VITALS: BP 160/80
== END | disposition home or self-care (01) ==
LOC: OR 10:01
PROVIDERS: ATTEND Surgery Vascular Surgery
DX: I12.0 Hypertensive chronic kidney disease with stage 5 chronic kidney disease or end stage renal disease (principal); N18.6 End stage renal disease; E10.51 Type 1 diabetes mellitus with diabetic peripheral angiopathy without gangrene; E10.22 Type 1 diabetes mellitus with diabetic chronic kidney disease; J90 Pleural effusion, not elsewhere classified; Z79.84 Long term (current) use of oral hypoglycemic drugs; Z79.899 Other long term (current) drug therapy; Z98.890 Other specified postprocedural states; Z72.89 Other problems related to lifestyle; Z20.822 Contact with and (suspected) exposure to COVID-19
CPT/HCPCS: 36415; 36819; 82962; 84132; 87426; C9803; J0690; J1644; J2250; J2405; J2704; J3010; J3490; J7030

== ENCOUNTER 2022-03-11 14:07 | Emergency (ER) | payer MEDICARE, MEDICAID ==
[~2022-03-11] VITALS: Ht 160 cm; Wt 80.0 kg
[~2022-03-11 14:07] MED LIST changes: -BACITRACIN 15GM TUBE TOP ONE; -BRIM10DR2 EACHEYE; -BUPIVACAINE HCL/PF 0.5% (5MG/ML) 30ML ONE; -CEFAZOLIN SODIUM 1000MG/VIAL ONE; -CHLO50TA MT; -FENTANYL CITRATE/PF 50MCG/ML 2ML VIAL IV PRN; -FENTANYL CITRATE/PF 50MCG/ML 5ML VIAL ONE; -HEPARIN 1000 UNITS/ML 10ML ONE; -HEPARIN SODIUM 1,000 UNIT/1ML VIAL IV NR; -HEPARIN SODIUM 1,000 UNIT/1ML VIAL IV ONE; -HYDROCODONE/ACETAMINOPHEN 5/325MG TABLET PO PRN; -KETO5DRO7 EACHEYE; -LIDOCAINE HCL 1% 20ML VIAL (Pyxis) INJ ONE; -LINA5TAB PO; -METF-414 MT; -MIDAZOLAM HCL 2 MG/2 ML VIAL ONE; -ONDANSETRON HCL 4MG/2ML INJ IV PRN; -ONDANSETRON HCL 4MG/2ML INJ ONE; -POLY30DR OP; -POLYMYXIN B SULFATE 500000 UNITS/VIAL ONE; -PROPOFOL 200MG/20ML VIAL IV ONE; -SEMA7TAB PO; +SEMA7TAB2 PO; -SODIUM CHLORIDE 0.9% INJ 3ML FLUSH IVF SCH; -THROMBIN (BOVINE) 5000 UNITS/VIAL TOP ONE
[2022-03-11 14:49] VITALS: BP 149/56
[2022-03-11] MEDS ORDERED: VISCOUS LIDOCAINE 2% 15 ML UDC PO STA (18:22)
[2022-03-11] MEDS ORDERED: ONDANSETRON 4MG ODT PO STA (18:22)
[2022-03-11] MEDS ORDERED: MAGNESIUM/ALUMINUM HYDROXIDE/SIMETHICONE 30ML UDC PO STA (18:22)
[2022-03-11] MEDS ORDERED: FAMOTIDINE 20MG TABLET PO ONE (18:30)
[2022-03-11 20:39] LABS: BASOPHILS % 0.6 % (0.0-2.0); EOSINOPHILS % 2.4 % (0.0-5.0); HEMATOCRIT. 27.2 % (36.0-48.0); HEMOGLOBIN. 9.2 g/dL (12.0-16.0); LYMPHOCYTES % 9.5 % (20.0-50.0); MEAN CORPUSCULAR HEMOGLOBIN 30.5 pg (28.0-32.0); MEAN CORPUSCULAR VOLUME 90.5 fL (81.0-99.0); MONOCYTES % 3.6 % (2.0-8.0); NEUTROPHILS % 83.9 % (40.0-76.0); PLATELET 231 x1000/uL (130-400); RED BLOOD CELL COUNT 3.01 mill/uL (4.2-5.4); RED CELL DISTRIBUTION WIDTH 14.4 % (11.6-14.6)
[2022-03-11 20:48] LABS: PROTHROMBIN TIME 10.6 sec (9.6-11.0)
[2022-03-11 20:59] LABS: CHLORIDE 92 mEq/L (98-107)
[2022-03-11] MEDS ORDERED: FAMO20TA8 MT (22:25)
== END 2022-03-11 22:41 | disposition home or self-care (01) ==
LOC: ER 14:39
DX: R10.12 Left upper quadrant pain (principal); J90 Pleural effusion, not elsewhere classified; E11.65 Type 2 diabetes mellitus with hyperglycemia; I12.0 Hypertensive chronic kidney disease with stage 5 chronic kidney disease or end stage renal disease; E11.22 Type 2 diabetes mellitus with diabetic chronic kidney disease; N18.6 End stage renal disease; D64.9 Anemia, unspecified; Z99.2 Dependence on renal dialysis; Z79.4 Long term (current) use of insulin
CPT/HCPCS: 36415; 71045; 74176; 76705; 80053; 83690; 84484; 85025; 85610; 93005; 99285; Q0162

== ENCOUNTER 2024-01-26 17:18 | Emergency (ER) | payer MEDICARE, OTHER ==
[~2024-01-26] VITALS: Ht 160 cm; Wt 91.0 kg
[~2024-01-26 17:18] MED LIST changes: -ATEN50TA MT; +FAMO20TA8 MT; +GABA-529 PO; -HYDR-4135 PO; +HYDR50TA39 PO; -P20 PO
[2024-01-26 17:27] VITALS: O2SAT 99
[2024-01-26] MEDS: LIDOCAINE HCL/EPINEPHRINE 1%-EPI 1:100,000 10ML VIAL INFIL ONE (20:04)
[2024-01-26] MEDS: TRANEXAMIC ACID 1,000MG/10ML TP ONE (20:45)
[2024-01-26 23:18] VITALS: BP 145/80; PULSE 88; RESP 18; TEMP 36.78072; O2SAT 99
== END 2024-01-26 23:21 | disposition home or self-care (01) ==
LOC: ER 17:18
DX: K06.8 Other specified disorders of gingiva and edentulous alveolar ridge (principal); E11.9 Type 2 diabetes mellitus without complications; I12.0 Hypertensive chronic kidney disease with stage 5 chronic kidney disease or end stage renal disease; E11.22 Type 2 diabetes mellitus with diabetic chronic kidney disease; N18.6 End stage renal disease; Z99.2 Dependence on renal dialysis; Z79.899 Other long term (current) drug therapy; Z79.4 Long term (current) use of insulin; Z79.82 Long term (current) use of aspirin; Z90.710 Acquired absence of both cervix and uterus
CPT/HCPCS: 99281